=== PATIENT | female | born 1980 ===

== ENCOUNTER → 2017-12-11 | Outpatient (CLI) | payer OTHER | END | disposition home or self-care (01) | LOC: C.PAPS 09:09 | PROVIDERS: ATTEND Physician Assistant | DX: Z01.419 Encounter for gynecological examination (general) (routine) without abnormal findings (principal) ==

== ENCOUNTER → 2018-02-26 | Outpatient (CLI) | payer OTHER ==
--- NOTE | 2018-02-27 07:50 | MAMMOGRAPHY REPORT ---
BILATERAL DIGITAL DIAGNOSTIC MAMMOGRAM TOMOSYNTHESIS WITH CAD AND TARGETED LEFT ULTRASOUND: 02/26/2018 CLINICAL HISTORY: 37-year-old woman presents with a sensation of left breast pain that has been occur ring daily since the beginning of January. She describes it as both dull aching and sharp stabbing and a "sensitive" sensation. Her doctor also felt thickening in her area of pain on physical exam. No skin erythema or nipple discharge. No family history of breast cancer. TECHNIQUE: Bilateral breast tomosynthesis in addition to standard 2D mammography was performed. Curre nt study was also evaluated with a Computer Aided Detection (CAD) system. COMPARISON: No prior exams were available for comparison. BREAST COMPOSITION: The tissue of both breasts is heterogeneously dense, which may obscure small mas ses. FINDINGS: A triangular skin marker overlies the upper outer middle one third of the left breast, maria isabel ting the area of pain and thickening pointed out by the patient. No suspicious mass, architectural d istortion, asymmetry or cluster of microcalcifications is seen in the breasts, with particular attent ion to the area of concern in the left upper outer quadrant. Targeted ultrasound was performed in the area of pain and thickening in the left 1:00 breast, 1 cm fr om the nipple. Sonographically normal fibroglandular and fatty tissue is seen without a suspicious s olid or cystic mass. No drainable fluid collection or focal skin thickening is appreciated. IMPRESSION: ACR BI-RADS CATEGORY 2: BENIGN, TARGETED ULTRASOUND ACR BI-RADS CATEGORY 2: BENIGN There is no mammographic or targeted sonographic evidence of malignancy in the breasts. No suspiciou s abnormality to explain the focal pain and thickening in the left 1:00 breast. Therefore, clinical follow-up is recommended, as biopsy of a clinically suspicious mass should not be precluded by negati ve imaging. Otherwise, screening mammography is recommended in 4 years. Approximately 10% of breast cancers are not detected with mammography. A negative mammographic report should not delay biopsy if a clinically suggestive mass is present. Joy Fitzgerald M.D. ay/:02/26/2018 08:31:11 [employer]: [employer](Fara)([place]uy), [facility] letter sent: Normal 1/2 BI-RADS Code: ACR BI-RADS Category 2: Benign Ultrasound BI-RADS: ACR BI-RADS Category 2: Benign
== END | disposition home or self-care (01) ==
LOC: C.MAMM 07:53
PROVIDERS: ATTEND Physician Assistant
DX: R92.8 Other abnormal and inconclusive findings on diagnostic imaging of breast (principal); N63.20 Unspecified lump in the left breast, unspecified quadrant